=== PATIENT | male | born 1995 | race Caucasian/White ===

== ENCOUNTER 2018-05-14 00:04 | Emergency (ER) | payer MEDICAID ==
[~2018-05-14] VITALS: Ht 182.9 cm; Wt 100.0 kg
[2018-05-14 00:08] VITALS: Ht 182.9 cm; Wt 100.0 kg
[2018-05-14] MEDS ORDERED: VICTOZA0.6 MG/0.1 SQ (00:11)
[2018-05-14] MEDS ORDERED: AUGMENTIN 875-11 TAB PO (00:12)
[2018-05-14 00:52] VITALS: BP 129/74
== END 2018-05-14 00:52 | disposition home or self-care (01) ==
LOC: D.ER 00:04
DX: S81.851A Open bite, right lower leg, initial encounter (principal); W54.0XXA Bitten by dog, initial encounter; Y93.89 Activity, other specified; Y92.89 Other specified places as the place of occurrence of the external cause